=== PATIENT | female | born 1945 | race Caucasian/White ===

== ENCOUNTER → 2019-03-02 09:24 | Outpatient (BNVA) | payer MEDICARE, OTHER, SELFPAY | PROVIDERS: PCP Nurse Practitioner; Visit Provider Nurse Practitioner | DX: E78.5 Hyperlipidemia, unspecified (principal); R53.83 Other fatigue | CPT/HCPCS: 80053; 80061; 84439; 84443; 84481 ==

== ENCOUNTER → 2019-12-02 11:00 | Outpatient (BNVA) | payer MEDICARE, OTHER, SELFPAY | PROVIDERS: Family Provider Nurse Practitioner Family; PCP Nurse Practitioner; Visit Provider Nurse Practitioner Family | DX: Z12.31 Encounter for screening mammogram for malignant neoplasm of breast (principal); E03.9 Hypothyroidism, unspecified | CPT/HCPCS: 84443 ==

== ENCOUNTER 2019-12-23 12:38 | Outpatient (CLI) | payer MEDICARE, OTHER, SELFPAY ==
--- NOTE | 2019-12-23 12:52 | XR_ITS ---
WS: [id number] Exam: XR cervical spine 3V* [id number] Date/Time of Exam: 12/23/2019 12:52 PM Reason For Exam: Neck Pain No acute fracture or dislocation. There is straightening of the C-spine. There is spondylosis and deg enerative disc change from C5 to C7. Facet DJD at all levels. The odontoid is intact. Paraspinal soft tissues are unremarkable. XR/XR cervical spine 3V* [id number] IMPRESSION: 1. Degenerative changes from C5 to C7 as above. 2. No acute fracture or malalignment. Straightening.
--- NOTE | 2019-12-23 12:52 | XR_ITS ---
WS: [id number] Exam: XR lumbar spine 2-3V* [id number] Date/Time of Exam: 12/23/2019 12:52 PM Reason For Exam: Low back Pain No previous. No fracture or dislocation. Disc spaces are preserved. Dextroscoliosis noted. Partial sacralization o f L5 with a left-sided batwing transverse process. Posterior elements are intact. Minimal spondylosis . XR/XR lumbar spine 2-3V* [id number] IMPRESSION: 1. No fracture or malalignment. 2. Mild degenerative change and dextroscoliosis
== END 2019-12-23 12:39 | disposition home or self-care (01) ==
LOC: RAD 12:49
PROVIDERS: PCP Nurse Practitioner Family; Visit Provider Nurse Practitioner Family
DX: M54.5 Low back pain (principal); M54.2 Cervicalgia
CPT/HCPCS: 72040; 72100

== ENCOUNTER 2020-01-13 09:24 | Outpatient (CLI) | payer MEDICARE, OTHER, SELFPAY ==
--- NOTE | 2020-01-13 09:30 | MM_ITS ---
WS: [id number] Exam: [place] [id number] Date/Time of Exam: 01/13/2020 9:35 AM Reason For Exam: breast cancer VIEWS: MLO and CC views both breasts. Comparison made with prior exam of 05/23/2016. Findings: There was no sign of mass, architectural distortion or suspicious calcification in either breast. He terogeneously [place] MM/[place] [id number] Impression: BI-RADS: 2-Benign FOLLOW-UP: 1 Year Follow-up This mammogram was also analyzed by the Computer Aided Detection System R2 Imag e Impregnator Electrolytic Capacitors.
== END 2020-01-13 09:25 | disposition home or self-care (01) ==
LOC: RADSHAW 09:27
PROVIDERS: PCP Nurse Practitioner Family; Visit Provider Nurse Practitioner Family
DX: Z12.31 Encounter for screening mammogram for malignant neoplasm of breast (principal)
CPT/HCPCS: 77067

== ENCOUNTER 2021-05-24 14:55 | Outpatient (CLI) | payer MEDICARE, OTHER, SELFPAY ==
--- NOTE | 2021-05-24 15:06 | MM_ITS ---
WS: [id number] BILATERAL 3D TOMOSYNTHESIS DIGITAL SCREENING MAMMOGRAPHY WITH CAD CLINICAL INFORMATION: SCREENING HISTORY: Screening mammogram. No current complaints. COMPARISON: January 13, 2020 TECHNIQUE: Bilateral CC and MLO views. FINDINGS: The breasts are composed of heterogeneous fibroglandular density tissue, which can limit the detectio n of small underlying mass lesions. Biopsy marker LEFT breast. A few incidental punctate calcificatio ns. Vascular calcification. No suspicious mass, asymmetry, calcifications, or architectural distortio n. No evidence of malignancy. MM/[place] [id number] IMPRESSION: BI-RADS: 2-Benign FOLLOW UP: 1 Year Follow-up Recommend return to annual screening mammography.
== END 2021-05-24 14:56 | disposition home or self-care (01) ==
LOC: RADSHAW 15:01
PROVIDERS: PCP Nurse Practitioner Family; Visit Provider Nurse Practitioner Family
DX: Z12.31 Encounter for screening mammogram for malignant neoplasm of breast (principal)
CPT/HCPCS: 77063; 77067

== ENCOUNTER → 2021-05-29 09:58 | Outpatient (BNVA) | payer MEDICARE, OTHER, SELFPAY | PROVIDERS: PCP Nurse Practitioner Family; Visit Provider Nurse Practitioner | DX: E78.2 Mixed hyperlipidemia (principal); M19.90 Unspecified osteoarthritis, unspecified site | CPT/HCPCS: 80048; 80061; 84443 ==

== ENCOUNTER → 2022-05-23 11:34 | Outpatient (BNVA) | payer MEDICARE, OTHER, SELFPAY | PROVIDERS: PCP Nurse Practitioner; Visit Provider Nurse Practitioner | DX: E78.5 Hyperlipidemia, unspecified (principal); M25.50 Pain in unspecified joint | CPT/HCPCS: 80053; 80061; 84443; 85025 ==

== ENCOUNTER 2022-05-30 09:54 | Outpatient (CLI) | payer MEDICARE, OTHER, SELFPAY ==
--- NOTE | 2022-05-30 10:25 | MM_ITS ---
WS: [id number] BILATERAL SCREENING DIGITAL TOMOSYNTHESIS MAMMOGRAM WITH CAD HISTORY: SCREENING COMPARISON: 05/24/2021, 01/13/2020 Bilateral CC and MLO views with tomosynthesis and synthetic mammography submitted. Computer aided det ection analyzed. Breast composition: The breasts are heterogeneously dense, which may obscure small masses. No suspici ous masses, microcalcifications or architectural distortion. Biopsy clip in the posterior LEFT breast . MM/[place] [id number] IMPRESSION: BI-RADS: 2-Benign FOLLOW UP: 1 Year Follow-up
== END 2022-05-30 09:55 | disposition home or self-care (01) ==
LOC: RAD 10:00
PROVIDERS: PCP Nurse Practitioner; Visit Provider Family Medicine
DX: Z12.31 Encounter for screening mammogram for malignant neoplasm of breast (principal)
CPT/HCPCS: 77063; 77067

== ENCOUNTER 2023-06-11 14:52 | Outpatient (CLI) | payer MEDICARE, OTHER, SELFPAY ==
--- NOTE | 2023-06-11 14:55 | MM_ITS ---
WS: [id number] BILATERAL 3D TOMOSYNTHESIS DIGITAL SCREENING MAMMOGRAPHY WITH CAD CLINICAL INFORMATION: SCREENING HISTORY: Screening mammogram. No current complaints. COMPARISON: 05/30/2022 TECHNIQUE: Bilateral CC and MLO views. FINDINGS: The breasts are composed of heterogeneous fibroglandular density tissue, which can limit the detectio n of small underlying mass lesions. No suspicious mass, asymmetry, calcifications, or architectural d istortion. No evidence of malignancy. Biopsy clip LEFT breast. Incidental punctate and lucent centere d calcifications. IMPRESSION: MM/[place] [id number] BI-RADS: 2-Benign FOLLOW UP: 1 Year Follow-up Recommend return to annual screening mammography.
== END 2023-06-11 14:53 | disposition home or self-care (01) ==
LOC: RAD 14:52
PROVIDERS: PCP Nurse Practitioner; Visit Provider Nurse Practitioner
DX: Z12.31 Encounter for screening mammogram for malignant neoplasm of breast (principal)
CPT/HCPCS: 77063; 77067

== ENCOUNTER → 2023-06-23 10:47 | Outpatient (BNVA) | payer MEDICARE, OTHER, SELFPAY | PROVIDERS: PCP Nurse Practitioner Family; Visit Provider Nurse Practitioner Family | DX: Z13.6 Encounter for screening for cardiovascular disorders (principal); E78.5 Hyperlipidemia, unspecified; Z79.899 Other long term (current) drug therapy; E78.2 Mixed hyperlipidemia; E55.9 Vitamin D deficiency, unspecified | CPT/HCPCS: 80053; 80061; 81003; 82306; 83036; 84443; 85025 ==

== ENCOUNTER → 2023-08-19 12:47 | Outpatient (BNVA) | payer MEDICARE, OTHER, SELFPAY | PROVIDERS: PCP Nurse Practitioner Family; Visit Provider Student in an Organized Health Care Education/Training Program | DX: M17.0 Bilateral primary osteoarthritis of knee (principal) | CPT/HCPCS: 73523; 99204 ==

== ENCOUNTER 2023-09-12 13:30 | Outpatient (CLI) | payer MEDICARE, OTHER, SELFPAY ==
--- NOTE | 2023-09-12 13:30 | CT_ITS ---
WS: [id number] CT RIGHT HIP NONCONTRAST [facility] TECHNIQUE: Noncontrast CT of the RIGHT HIP to include the RIGHT hip and knee CLINICAL INFORMATION: M16.11 - Unilateral primary osteoarthritis, right hip COMPARISON: None. DLP: [address] scans at [facility] use at least one of these dose optimization techniques: automated e xposure control; mA and/or kV adjustment per patient size (includes targeted exams where dose is matc hed to clinical indication); or iterative reconstruction. FINDINGS: Advanced degenerative arthritis RIGHT HIP with bone on bone articulation and subchrondral cystic smiley nge. Associated sclerosis Moderate arthritis LEFT HIP L5 is partially sacralized. Sigmoid diverticulosis. CT/CT hip RT [id number] IMPRESSION: Images obtained for preoperative purposes.
== END 2023-09-12 13:31 | disposition home or self-care (01) ==
PROVIDERS: PCP Nurse Practitioner Family; Visit Provider Student in an Organized Health Care Education/Training Program
DX: M16.11 Unilateral primary osteoarthritis, right hip (principal); K57.30 Diverticulosis of large intestine without perforation or abscess without bleeding; M13.852 Other specified arthritis, left hip; M43.27 Fusion of spine, lumbosacral region
CPT/HCPCS: 73700

== ENCOUNTER → 2023-10-06 11:24 | Outpatient (BNVA) | payer MEDICARE, OTHER, SELFPAY | PROVIDERS: PCP Nurse Practitioner Family; Visit Provider Family Medicine | DX: Z01.818 Encounter for other preprocedural examination (principal) | CPT/HCPCS: 80053; 81003; 85025; 93005 ==

== ENCOUNTER 2023-10-20 11:15 | Observation (INO) | payer MEDICARE, OTHER, SELFPAY ==
[2023-10-20] VITALS (21 sets, daily range): BP systolic 105–180; BP diastolic 50–93; PULSE 60–77; RESP 14–21; TEMP 36.2–36.6; O2SAT 93–99; BMI 23.9
[2023-10-20] MEDS: lactated ringers 500 ML IV (06:22)
[2023-10-20] MEDS: ketorolac 30 mg/mL INJ IVP (06:23)
[2023-10-20] MEDS: acetaminophen 1,000 MG/100 ML PIGGYBACK 400 MG IV ×3 (06:24→22:26)
[2023-10-20] MEDS: scopolamine 1.5 Patch 1 PATCH TRANSDERMA (06:25)
[2023-10-20] MEDS: sodium chloride 0.9% 1,000 ML 30 ML IV (06:25)
--- NOTE | 2023-10-20 06:38 | ANES.PREANE2 ---
Pre-Anesthetic Assessment Height/Weight: Height 5 ft 3 in Weight 135 lb Temp Pulse Resp BP Pulse Ox O2 Del Method 97.5 F L 61 16 171/93 98 Room Air 10/20/23 06:02 10/20/23 06:02 10/20/23 06:02 10/20/23 06:02 10/20/23 06:02 10/20/23 06:02 Operation Date: 10/20/23 07:00 Proposed Procedures p Franco Robot Anterior Hip Arthroplasty(Right) - Nino Rosales DO Last intake: Intake Last Liquid Date 10/19/23 Last Liquid Time 19:00 Last Solid Date 10/19/23 Last Solid Time 19:00 Social No alcohol and No tobacco Exam alert, oriented x 3, clear to auscultation bilaterally and regular rate & rhythm Airway Submandibular: within normal limits Cervical ROM: within normal limits Mallampati: Class II Dentition: full Anesthetic Plan ASA status: 2 Anesthesia: Anesthesia Evaluation, MAC and Regional (specify below) Other: No prior issues with anesthesia NPO since midnight Labs 10/05 reviewed and acceptable for surgery EKG sinus rhythm with left axis deviation Patient denies any cardiac or pulmonary issues Hypothyroidism, treated with iodine METs greater than 4 Patient does note that she has an extra vertebra in her lower back, unsure of the level Plan for spinal anesthetic with adductor canal block Medications/Allergies Home Medications Medication Instructions Recorded Confirmed Last Taken Type pseudoephedrine HCl 30 mg tablet 30 mg PO BID PRN nasal congestion 05/30/20 10/20/23 Unknown Rx (Sudafed) 30 days #30 tabs ascorbate calcium (vitamin C) 500 500 mg PO DAILY 05/29/21 10/20/23 1 Month Ago History mg tablet ~09/16/23 cholecalciferol (vitamin D3) 125 125 mcg PO DAILY 05/29/21 10/20/23 1 Month Ago History mcg (5,000 unit) capsule ~09/16/23 coenzyme Q10 10 mg capsule (Co 10 mg PO TID 05/29/21 10/20/23 1 Month Ago History Q-10) ~09/16/23 diphenhydramine HCl 25 mg capsule 25 mg PO .daily at bedtime PRN 05/29/21 10/20/23 10/18/23 History (Benadryl) allergies lecithin 518 mg capsule 518 mg PO DAILY 05/29/21 10/20/23 1 Month Ago History ~09/16/23 omega-3 fatty acids 180 mg-fish 1 cap PO DAILY 05/29/21 10/20/23 1 Month Ago History oil 400 mg capsule ~09/16/23 psyllium seed (sugar) oral powder 1 tbsp PO DAILY 05/29/21 10/20/23 1 Month Ago History (Metamucil (sugar) oral powder) ~09/16/23 turmeric 100 mg-armani 150 2 cap PO DAILY 05/29/21 10/20/23 09/20/23 History mg-olive 50 mg-oreg 150 mg-capryl capsule vit A 300 mcg-C 200 mg-E 27 1 tab PO DAILY 05/29/21 10/20/23 1 Month Ago History mg-lutein 2 mg and minerals tablet ~09/16/23 (Vision Formula (with lutein)) zinc sulfate 50 mg zinc (220 mg) 50 mg PO DAILY 05/29/21 10/20/23 1 Month Ago History capsule ~09/16/23 montelukast 10 mg tablet 10 mg PO DAILY #90 tabs 05/23/22 10/20/23 1 Month Ago Rx ~09/16/23 simvastatin 40 mg tablet 40 mg PO DAILY 90 days #90 tabs 06/23/23 10/20/23 10/18/23 Rx iodine 150 mcg tablet 600 mcg PO DAILY 10/06/23 10/20/23 10/18/23 History meloxicam 15 mg tablet 15 mg PO DAILY 10/06/23 10/20/23 09/20/23 History Allergies Allergy/AdvReac Type Severity Reaction Status Date / Time No Known Allergies Allergy Verified 10/20/23 05:52 Current Medications Generic Name Dose Route Start Last Admin Trade Name Freq PRN Reason Stop Dose Admin Lactated Ringer's 500 mls @ 500 mls/hr 10/20/23 05:49 10/20/23 06:22 Lactated Ringers IV 10/20/23 06:48 500 mls/hr .Q1H ONE Administration Sodium Chloride 1,000 mls @ 30 mls/hr 10/20/23 06:00 10/20/23 06:25 Sodium Chloride 0.9% IV 10/21/23 05:59 30 mls/hr .Q24H MELVIN Administration PFSH Anesthesia Medical History Impacted cerumen of both ears Encounter for screening for cardiovascular disorders Medication management 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 Martino Diverticulosis - return in 10 years S/P appendectomy S/P hysterectomy Social History Smoking and tobacco/nicotine status: never used tobacco/nicotine Second hand smoke exposure: No Alcohol intake: never Substance/Drug Use: never Data Anesthesia Cardiac Studies: No Data to Display
[2023-10-20 06:49] LABS: Basophils % 0.7 %; Eosinophils # 0.2 10^3/uL (0.0-0.8); Eosinophils % 4.3 %; Hematocrit 41.7 % (36-47); Lymphocytes % 35.7 %; Mean Corpuscular HGB Conc 33.8 g/dL (30-55); Mean Corpuscular Hemoglobin 31.2 pg (27-33); Mean Corpuscular Volume 92.3 fl (85-98); Mean Platelet Volume 9.7 fL (7.4-10.4); Monocytes # 0.3 10^3/uL (0.2-0.9); Monocytes % 5.9 %; Neutrophils % 53.2 %; Nucleated Red Blood Cells % 0 %; Platelet Count 191 10^3/cmm (157-399); Red Blood Count 4.52 10^6/uL (3.85-5.65); Red Cell Distribution Width 12.8 % (12.1-15.1); White Blood Count 5.63 10^3/uL (3.29-11.43)
--- NOTE | 2023-10-20 06:51 | W.PM.OPSFHP ---
Same Day Surgery H&P Indication for Procedure/HPI DATE OF PROCEDURE: October 20, 2023 CHIEF COMPLAINT/INDICATIONFOR SURGICAL PROCEDURE: Right hip degenerative joint disease PREOP DIAGNOSIS: Right hip degenerative joint disease PLANNED PROCEDURE: Operation Date: 10/20/23 07:00 Proposed Procedures p Franco Robot Anterior Hip Arthroplasty(Right) - Nino Rosales DO Medications/Allergies* Home Medications Medication Instructions Recorded Confirmed Type ascorbate calcium (vitamin C) 500 500 mg PO DAILY 05/29/21 10/20/23 History mg tablet cholecalciferol (vitamin D3) 125 125 mcg PO DAILY 05/29/21 10/20/23 History mcg (5,000 unit) capsule coenzyme Q10 10 mg capsule (Co 10 mg PO TID 05/29/21 10/20/23 History Q-10) diphenhydramine HCl 25 mg capsule 25 mg PO .daily at bedtime PRN 05/29/21 10/20/23 History (Benadryl) allergies lecithin 518 mg capsule 518 mg PO DAILY 05/29/21 10/20/23 History omega-3 fatty acids 180 mg-fish 1 cap PO DAILY 05/29/21 10/20/23 History oil 400 mg capsule psyllium seed (sugar) oral powder 1 tbsp PO DAILY 05/29/21 10/20/23 History (Metamucil (sugar) oral powder) turmeric 100 mg-armani 150 2 cap PO DAILY 05/29/21 10/20/23 History mg-olive 50 mg-oreg 150 mg-capryl capsule vit A 300 mcg-C 200 mg-E 27 1 tab PO DAILY 05/29/21 10/20/23 History mg-lutein 2 mg and minerals tablet (Vision Formula (with lutein)) zinc sulfate 50 mg zinc (220 mg) 50 mg PO DAILY 05/29/21 10/20/23 History capsule iodine 150 mcg tablet 600 mcg PO DAILY 10/06/23 10/20/23 History meloxicam 15 mg tablet 15 mg PO DAILY 10/06/23 10/20/23 History Allergies/Adverse Reactions Allergy/AdvReac Type Severity Reaction Status Date / Time No Known Allergies Allergy Verified 10/20/23 05:52 Current Medications: Generic Name Dose Route Start Last Admin Trade Name Freq PRN Reason Stop Dose Admin Sodium Chloride 1,000 mls @ 30 mls/hr 10/20/23 06:00 10/20/23 06:25 Sodium Chloride 0.9% IV 10/21/23 05:59 30 mls/hr .Q24H MELVIN Administration Pertinent History/Comorbid Conditions* Medical History (Updated 06/23/23 @ 10:47 by NUBIA Olivera) Impacted cerumen of both ears Encounter for screening for cardiovascular disorders Medication management Arthritis of both knees Arthritis of both hips Environmental and seasonal allergies Allergic sinusitis Neck pain Low back pain Hypothyroid Breast cancer screening by mammogram Diverticulosis Genital herpes Hyperlipemia Surgical History (Updated 03/18/19 @ 03:02 by NUBIA Olivera) H/O colonoscopy 09/[address] Martino Diverticulosis - return in 10 years S/P appendectomy S/P hysterectomy Social History Smoking and tobacco/nicotine status: never used tobacco/nicotine Second hand smoke exposure: No Alcohol intake: never Substance/Drug Use: never Pertinent Exam Findings alert, oriented x 3, operative site marked and procedure specific exam findings Please refer to detailed orthopedic examination on 08/19/2023: Right Hip Examination: -No lumbar spine tenderness -No pain with hyperextension or flexion of lumbar spine -No SI joint tenderness, Bilaterally -TTP over groin -No TTP over lateral trochanteric bursa -Significant pain with hip flexion and IR, reproduced at the groin -IR 5 degrees and ER 10 degrees -Smooth hip ROM on contralateral side Recommendations Surgery/Procedure today Other Plans: Plan proceed to the OR today for right total hip arthroplasty with Franco robotic assisted. Anterior approach. Patient's clear the preoperative clearance process she understands the ins and outs procedure the risk benefits complication alternatives surgery and through shared decision make elects proceed with surgical intervention today. All questions have been answered at this time. Is been medically optimized and no change in her health since our last visit. Patient understands agrees to current plan. Questions answered. Coding Level of Care Code Acute Code for Chg Fwchristine
[2023-10-20 07:03] LABS: Anion Gap 15.8 (5-19); Blood Urea Nitrogen 12 mg/dL (8-23); Calcium 9.1 mg/dL (8.5-10.5); Carbon Dioxide 24 mmol/L (22-29); Chloride 106 mmol/L (98-107); Glucose 116 mg/dL (65-115); Osmolality Calculated 295 mOsm/kg (285-295); Potassium 3.8 mmol/L (3.5-5.1); Sodium 142 mmol/L (136-145)
[2023-10-20] MEDS: ceFAZolin 2,000 MG in sodium chloride 0.9% (plus) 50 ML 100 MG IV ×3 (07:13→22:48)
[2023-10-20] MEDS: tranexamic acid 1,000 mg/10mL SDV 1000 MG IV (07:52)
[2023-10-20] MEDS: lidocaine-epi 1% 20 mL INJ INJECTION (08:07)
[2023-10-20] MEDS: vancomycin 1,000 MG SDV 1000 MG XX (09:35)
[2023-10-20] MEDS: lidocaine-epi 1% 20 mL INJ 10 ML INJECTION (09:44)
[2023-10-20] MEDS: ROPivacaine 0.5% SDV 30 mL 50 MG INJECTION (09:44)
--- NOTE | 2023-10-20 10:13 | PM.OP ---
Operative Report Date of procedure: October 20, 2023 Surgeon: Nino Rosales DO Branch Manager Trainee: Michael Rosales PA-C: PA was necessary for assistance in this case with leg positioning retraction reduction, and protection of neurovascular structures as well as assistance in implantation wound closure and dressing application. Procedure: Preoperative diagnosis: Right hip degenerative joint disease post-op diagnosis: Same Procedure done: Right total hip arthroplasty?Franco robotic assisted?anterior?approach Implants: [place] Trident acetabular shell size 50 mm [place] acetabular screw 25 mm Wilfrid acetabular screw 25 mm Insignia high offset size 5? femur stem Trident 0 degree polyethylene 36 degree inner diameter 36 mm femoral head ceramic +0 mm Surgeon: Nino Rosales DO Anesthesia: Other (Spinal) Estimated blood loss: 300 mL IV fluids: 1500 mL Complications: None Findings: See operative report narrative Condition: stable Disposition: floor Brief History: Patient is a 77-year-old female presented to my outpatient office setting findings consistent with [id number] arthritis advanced degenerative joint disease of the right hip.? We talked about treatment options as far as nonoperative and operative intervention. Pt has failed conservative treatment.up to this point and Patient's right hip degenerative joint disease has been so severe its given her pain and decreased range of motion.? we talked about treatment options at this point time pt understands the risk benefits complication alternatives surgical nonsurgical treatment options.? Patient understands the risk of surgery and agrees to proceed.? Patient has underwent a preoperative evaluation. Pt cleared for surical intervention. Pt understood and was agreeable to proceed with a right total hip arthroplasty consent was reviewed and signed with patient.?? All questions answered.? Patient will be admitted postoperatively. Procedure: Patient was seen evaluated in the preoperative holding area.? Consent was reviewed and signed with patient.? Correct operative extremity was then marked. ? All questions were answered at this time.? Once cleared by anesthesia used to brought back to the operative suite he then underwent anesthesia per the anesthesia department of a spinal anesthetic. The patient was administered tranexamic acid and preop antibiotics, and placed in the supine position. All bony prominences were properly padded, securely fixed to the table, and administered?general?anesthetic. The patient was subsequently transferred from the hospital bed to the [place] table. Bilateral lower extremities were placed in the traction boots. The pelvis was well approximated against the perineal post.? Final timeout performed.? Patient received appropriate preoperative antibiotics. Both hips were then prepped and draped in a normal orthopedic fashion.? Started with a small incision 2 fingerbreadths above the ASIS on the left iliac wing to place? pelvic arrays.? Small incision was made directly down to bone.? 3 pelvic pins were placed with excellent fixation.? The robotic array was secured to the nonoperative iliac wing using sterile technique. The extremity was then definitively draped in standard, sterile fashion.? The array was found to be visible by the robot. ?A standard??anterior?supine approach was performed to the?operative hip joint. Local was injected around the incision site. The skin was incised down to the tensor fascia olga muscle and fascia. Fascia was split longitudinally in line with its fibers. The tensor fascia olga muscle was retracted laterally. The appropriate retractors were placed superiorly. Lateral circumflex vessels were identified and appropriately ligated. The hip capsule was then identified.? Appropriate retractors were placed superiorly .??That was split longitudinally up to the acetabular rim in line with the femoral neck. The femoral capsule was found to be significantly hypertrophic, thickened, and significantly fibrotic. The capsule was then elevated both superiorly and inferiorly down to the lesser trochanter as well as up towards the greater trochanter.? Tag stitches were applied with 0 Ethibond into the capsule.? Femoral check point was?then inserted and confirmed on the lateral trochanter proximal femur.? A distal marker?of a sterile EKG lead was placed into the distal femur for measurement of leg lengths.? Preoperative leg lengths were registered and confirmed at this point. Next the appropriate-sized neck cut was then performed after being measured with robotic assistance. Femoral head was removed atraumatically this was found to have significant degenerative changes and deformity with significant osteophyte formation.? Femoral head was found to be severely degenerated and flattening with, eburnated bone. Acetabulum was also inspected and was found to have peripheral osteophytes as well as no evidence of cartilage consistent with [id number]-[id number] arthritis.? Appropriate retractors were then placed in the?anterior?and posterior wall.? The remaining labrum was then excised from the periphery of the acetabular rim. Pulvinar was excised.? At this point registration for the Franco was performed on the acetabular side and confirmed. Once confirmed, any osteophytes able to be were removed. We planned 40 degrees of lateral opening and 20 degrees of anteversion. At this point, we reamed and medialized to the inner wall of the acetabulum with a size?50?reamer for line to line fit.?The acetabulum was found to have good bleeding bone throughout.?? Reamer removed excellent bleeding bone circumferentially with sufficient?anterior?and posterior wall. ?The definitive acetabular cup 50 mm was inserted and impacted under?Franco guidance with the appropriate amount of anteversion and lateral opening. It was then secured with 2x 6.5 mm cancellous screws in appropriate safe zone position.? I subsquently drilled measured and place appropriate length acetabular screws which measured 25 mm and 25 mm.? These had excellent fixation final x-rays were taken of the acetabular work and showed a seated and well fixed acetabular cup with appropriate position acetabular screws.? ?Next a 36-mm X3 neutral liner was impacted into the?acetabular shell and secured. Hip was then irrigated with copious amounts of irrigation. At this point, the remaining femoral releases were then performed allowing the adequate mobilization of the?right?femur.? Traction was confirmed to being off to the right lower extremity and the femur was then externally rotated, extended, and adducted giving adequate exposure of the proximal femur in the surgical wound. Box cut was then used to enter the intramedullary canal of the?femur. Canal finder was placed down the canal of the?operative femur. Appropriate-sized broaches from a size 0 up to a size 5 were impacted down the operative femoral canal with the appropriate amount of anteversion.? A multiple trials were attempted and it was found?that?+0mm neck was found to be most appropriate for a soft tissue tensioning offset, stability and the leg lengths?that was confirmed with Franco. ?Stability was then assessed and excellent stability with patient external rotation of greater?than 90 degrees and traction with no evidence of hip instability.? Appropriate tension noted of the soft tissues. At this point, the hip was relocated.?Franco guidance was again used to confirm appropriate leg lengths.? I utilized C arm to evaluate for leg lengths as well I did slightly at the lengthen comparative to the contralateral extremity but this was the appropriate size for patient's stability and excellent soft tissue tensioning as well as this was mapped with her preoperative planning given she had been significantly shortened given her arthritis.? Operative hip was then re-dislocated using a bone hook. All trials were then removed from the?operative femur. Adequate exposure was then once again obtained. The trials were removed. The definitive Wilfrid insignia femoral stem size 5 was impacted down the?femoral canal with the appropriate amount of anteversion. The appropriate sized head 36 mm ceramic +0 mm was impacted onto the trunnion, and the?operative?hip was then relocated with traction and internal rotation. Final measurements were obtained on Franco confirming leg lengths and offset.? Once again hip stability was assessed and found to have excellent stability and appropriate soft tissue tensioning.? Hip was irrigated with copious amounts of irrigation.? Vancomycin powder was placed within the wound bed for added infection prophylaxis.? The superior and inferior leaflets of the capsule were then closed with Ethibond suture.? Tag stitches were removed.? The superficial layer of the tensor fascia olga fascia was closed using 0 stratafix suture in a running fashion.? Subcutaneous tissues were closed with running 3-0 Stratafix, skin was closed with 4-0 monocryl.?Surgical Prineo glue and steri strips were?applied and covered with a nestor dressing to the operative side.?The incision on the non-operative side for the robotic array was irrigated and closed with layered fashion of 0 Vicryl, 2-0 Vicryl and running Monocryl suture and surgical glue and covered with Silverlon. ?The patient was subsequently awoken per Anesthesia and transferred to PACU in satisfactory condition. ?Leg lengths and rotational profile were found to be appropriate. ? DISPOSITION: The patient will be admitted to the hospital for initiation of DVT prophylaxis, physical therapy, pain control. The patient is to weight bear as tolerated.?Anterior?hip precautions, postoperative antibiotics,?postoperative TXA and Eliquis?for DVT prophylaxis.? Patient will receive appropriate discharge instructions as well as pain medication postoperatively and will follow up in my office in 2 weeks.? Patient with work with PT/OT.? Internal medicine will be consulted for medical management
--- NOTE | 2023-10-20 10:16 | XR_ITS ---
WS: [id number] Exam: XR hip RT 2-3V wo/w pel* [id number] Date/Time of Exam: 10/20/2023 10:36 AM Reason For Exam: post op DWIGHT RIGHT total hip arthroplasty is in place in satisfactory position. Postoperative changes in the adjac ent soft tissues. XR/XR hip RT 2-3V wo/w pel* [id number] IMPRESSION: 1. RIGHT total hip replacement in satisfactory position.
--- NOTE | 2023-10-20 10:21 | XR_ITS ---
WS: [id number] Exam: XR hip RT 2-3V wo/w pel* [id number] Date/Time of Exam: 10/20/2023 10:22 AM Reason For Exam: OR PICS Intraoperative anterior posterior images of the RIGHT hip are submitted. The final image depicts a to rosaura hip prosthesis in place. Postoperative changes in the adjacent soft tissues.
--- NOTE | 2023-10-20 10:25 | W.PM.BPON ---
Date of Procedure: [October 20, 2023] Surgeon: [Dr. Rosales DO] Rehabilitation Physician(s): [Michael Rosales PA-C] Procedure(s) performed: [Right total hip arthroplasty with Franco robotic assist] Findings of the procedure(s): [Right hip degenerative joint disease] Estimated blood loss: [300 ml] Specimen(s) removed: [Femoral head] Post-operative diagnosis: [Right hip degenerative joint disease.]
--- NOTE | 2023-10-20 10:27 | PM.PACU ---
PACU note Narrative: Patient is a 77-year-old female just underwent a right total hip arthroplasty. Pt transferred to PACU in stable condition. Dressing is dry. pt is awake and alert. Compartments are soft and compressible. Distal pulses are palpable toes are warm and well-perfused. Cap refill is normal and under 2 seconds. Unable to assess motor or sensation due to residual spinal block. pain is controlled. Exam: awake Disposition: admitted
[2023-10-20] MEDS: lactated ringers 1,000 ML 100 ML IV ×2 (11:51→20:37)
[2023-10-20] MEDS: oxyCODONE 5 mg IR Tab/Cap PO ×2 (13:30→20:39)
[2023-10-20] MEDS: tranexamic acid 1,000 MG/100 ML PREMIX 600 MG IV (13:33)
[2023-10-20] MEDS: chlorhexidine gluconate 0.12% Btl 473 mL 30 ML MUCOUS MEM ×3 (13:34→20:39)
--- NOTE | 2023-10-20 14:14 | ANE.PACU2 ---
Inpatient post-anesthesia follow up: Airway intact: Yes Vital signs: Temperature 97.4 F Pulse Rate 67 Respiratory Rate 16 Blood Pressure 129/78 Pulse Oximetry 96 Oxygen Delivery Me thod Room Air Oxygen Flow Rate Fraction of Inspir ed Oxygen Hydration adequate: Yes Nausea and vomiting: No Pain level: 1 Mental status: Baseline
[2023-10-20] MEDS: HYDROmorphone 1 mg/mL INJ 1 mL 0.5 MG IVP (14:48)
[2023-10-20] MEDS: calcium carb-vit d 600mg/400unit 1 Tablet 1 EACH PO (17:57)
[2023-10-20] MEDS: iron polysaccharide complex 150 mg Capsule PO (17:57)
[2023-10-20] MEDS: sennosides-docusate Tablet 2 TAB PO (17:57)
[2023-10-20] MEDS: mupirocin oint 22 gm 1 APPLIC NASAL (17:59)
[2023-10-20] MEDS: ketorolac 30 mg/mL INJ 15 MG IVP (18:39)
[2023-10-20] MEDS: diphenhydrAMINE 25 mg Capsule PO (22:26)
[2023-10-21] VITALS (7 sets, daily range): BP systolic 157–174; BP diastolic 69–80; PULSE 72–74; RESP 16–18; TEMP 36.6–36.9; O2SAT 94–95
[2023-10-21] MEDS: oxyCODONE 5 mg IR Tab/Cap PO ×3 (00:15→12:07)
[2023-10-21] MEDS: ketorolac 30 mg/mL INJ 15 MG IVP (02:59)
[2023-10-21] MEDS: acetaminophen 1,000 MG/100 ML PIGGYBACK 400 MG IV (05:06)
[2023-10-21 05:29] LABS: Basophils % 0.3 %; Eosinophils % 0.7 %; Hematocrit 32.6 % (36-47); Lymphocytes # 1.1 10^3/uL (0.8-4.8); Lymphocytes % 18.5 %; Mean Corpuscular Hemoglobin 31.7 pg (27-33); Mean Corpuscular Volume 93.1 fl (85-98); Mean Platelet Volume 9.8 fL (7.4-10.4); Monocytes # 0.4 10^3/uL (0.2-0.9); Monocytes % 6.2 %; Neutrophils # 4.53 10^3/uL (1.8-7.7); Nucleated Red Blood Cells % 0 %; Platelet Count 132 10^3/cmm (157-399); Red Cell Distribution Width 12.9 % (12.1-15.1); White Blood Count 6.12 10^3/uL (3.29-11.43)
[2023-10-21] MEDS: ceFAZolin 2,000 MG in sodium chloride 0.9% (plus) 50 ML 100 MG IV (05:31)
[2023-10-21 05:47] LABS: Anion Gap 13.7 (5-19); Blood Urea Nitrogen 6 mg/dL (8-23); Calcium 8.8 mg/dL (8.5-10.5); Carbon Dioxide 24 mmol/L (22-29); Chloride 103 mmol/L (98-107); Creatinine Clr Calc Pharmacy 56.1754; Glucose 130 mg/dL (65-115); Osmolality Calculated 283 mOsm/kg (285-295); Potassium 3.7 mmol/L (3.5-5.1); Sodium 137 mmol/L (136-145)
[2023-10-21] MEDS: iron polysaccharide complex 150 mg Capsule PO (09:36)
[2023-10-21] MEDS: multivitamin therapeutic Tablet 1 TAB PO (09:36)
[2023-10-21] MEDS: calcium carb-vit d 600mg/400unit 1 Tablet 1 EACH PO (09:36)
[2023-10-21] MEDS: sennosides-docusate Tablet 2 TAB PO (09:36)
[2023-10-21] MEDS: apixaban 5 mg Tablet 2.5 MG PO (09:36)
[2023-10-21] MEDS: chlorhexidine gluconate 0.12% Btl 473 mL 30 ML MUCOUS MEM ×2 (09:38→12:08)
[2023-10-21] MEDS: mupirocin oint 22 gm 1 APPLIC NASAL (09:38)
[2023-10-21] MEDS: lactated ringers 1,000 ML 100 ML IV (09:41)
--- NOTE | 2023-10-21 13:21 | P.DS_ITS ---
Discharge Providers Date of Admission: 10/20/23 11:15 Date of Discharge: October 21, 2023 Attending Provider at Admission: Nino Rosales DO Attending Provider at Discharge: Nino Rosales DO Primary Care Provider: NUBIA Petty Reason for Visit Reason for Visit: M16.11 Brief History: Status post right DWIGHT Hospital Course Hospital Course Patient was brought to the hospital through the preoperative holding area with plan for right total hip arthroplasty for right hip dengerative joint disease. Once cleared by anesthesia for surgery subsequently was taken back to the operative suite underwent anesthesia per the anesthesia department and then underwent right total hip arthroplasty with Franco robotic assistance anterior approach without any complications. Patient was then subsequently taken back to PACU in stable condition recovering well. Once recovered, patient was then subsequently admitted to the floor postoperatively. Internal medicine was consulted for medical management assistance. Patient weightbearing as tolerated to the right lower extremity, anterior hip precautions. PT/OT. Pain control. DVT prophylaxis. Postoperative antibiotics and TXA. dressing was change as needed. Internal medicine was on board and appreciate their medical management and assistance. Pt was determined on postoperative day 1 the patient was stable for discharge from orthopedic as well as internal medicine standpoint. Patient's labs were monitored daily. Patient will receive appropriate pain medication as well as DVT prophylaxis postoperatively. Appropriate discharge instructions as well. Patient was then discharged in stable condition. Patient will discharge home. Pt will follow-up with Orthopedics in the office in 2 weeks. Patient understands and agrees with current plan. All questions answered. Understands there is any issues or concerns and contact the office. Physical Exam Narrative: Right lower extremity: hip dressings are in place clean dry and intact stuart dressing on in place with good seal. Patient is able to tolerate gentle hip range of motion with no pain or discomfort, negative logroll examination., Patient is able to perform straight leg raise. Normal postoperative swelling about the right hip, calves are soft and nontender, compartments are soft and compressible patient able to wiggle toes plantarflex and dorsiflex ankle sensations intact light touch distally. Distal pulses are palpable. Left hip FRANCO iliac crest dressing clean dry and intact, normal postop ecchymosis noted Urinary Catheter Management: Hernandez: Cath Placed During This Visit: yes, but has since been removed by the nurse Reason for Continuing Indwelling Catheter: Does Not Meet Criteria Urinary Catheter Date of Insertion: 10/20/23 Urinary Catheter Time of Insertion: 07:35 Date Urinary Catheter Removed: 10/21/23 Time Urinary Catheter Discontinued: 05:22 Discharge Data Studies Completed and Pending Completed Studies During Hospitalization Category Date Time Status XR hip RT 2-3V wo/w pel* 24210 Routine Exams 10/20/23 10:16 Completed XR hip RT 2-3V wo/w pel* [id number] Routine Exams 10/20/23 10:21 Completed Pending at discharge Category Date Time Status Basic Metabolic Panel AM LABS Lab 10/22/23 04:00 Ordered Basic Metabolic Panel AM LABS Lab 10/23/23 04:00 Ordered Complete Blood Count w/Auto AM LABS Lab 10/22/23 04:00 Ordered Complete Blood Count w/Auto AM LABS Lab 10/23/23 04:00 Ordered Laboratory Results WBC 6.12 10^3/uL (3.29-11.43) 10/21/23 05:05 RBC 3.50 10^6/uL (3.85-5.65) L 10/21/23 05:05 Hgb 11.10 g/dL (11.27-16.99) L 10/21/23 05:05 Hct 32.6 % (36-47) L 10/21/23 05:05 MCV 93.1 fl (85-98) 10/21/23 05:05 MCH 31.7 pg (27-33) 10/21/23 05:05 MCHC 34.0 g/dL (30-55) 10/21/23 05:05 RDW 12.9 % (12.1-15.1) 10/21/23 05:05 Plt Count 132 10^3/cmm (157-399) L D 10/21/23 05:05 MPV 9.8 fL (7.4-10.4) 10/21/23 05:05 Neut % (Auto) 74.0 % 10/21/23 05:05 Lymph % (Auto) 18.5 % 10/21/23 05:05 [place] % (Auto) 6.2 % 10/21/23 05:05 Eos % (Auto) 0.7 % 10/21/23 05:05 Baso % (Auto) 0.3 % 10/21/23 05:05 Neut # (Auto) 4.53 10^3/uL (1.8-7.7) 10/21/23 05:05 Lymph # (Auto) 1.1 10^3/uL (0.8-4.8) 10/21/23 05:05 [place] # (Auto) 0.4 10^3/uL (0.2-0.9) 10/21/23 05:05 Eos # (Auto) 0.0 10^3/uL (0.0-0.8) 10/21/23 05:05 Baso # (Auto) 0.0 10^3/uL (0.0-0.1) 10/21/23 05:05 Nucleated RBC % (auto) 0 % 10/21/23 05:05 Nucleated RBCs # 0.0 /100WBC 10/21/23 05:05 Sodium 137 mmol/L (136-145) 10/21/23 05:05 Potassium 3.7 mmol/L (3.5-5.1) 10/21/23 05:05 Chloride 103 mmol/L (98-107) 10/21/23 05:05 Carbon Dioxide 24 mmol/L (22-29) 10/21/23 05:05 Anion Gap 13.7 (5-19) 10/21/23 05:05 BUN 6 mg/dL (8-23) L 10/21/23 05:05 Creatinine 0.7 mg/dL (0.5-0.9) 10/21/23 05:05 GFR Calculation Not Reportable 10/21/23 05:05 Glucose 130 mg/dL (65-115) H 10/21/23 05:05 Calculated Osmolality 283 mOsm/kg (285-295) L 10/21/23 05:05 Calcium 8.8 mg/dL (8.5-10.5) 10/21/23 05:05 Blood Type A Negative 10/20/23 06:30 Rho(D) Type Rh negative 10/20/23 06:30 Antibody Screen Negative 10/20/23 06:30 Vitals Last Vital Signs Temp 97.8 F 10/21/23 12:08 Pulse 74 10/21/23 12:08 Resp 17 10/21/23 12:08 BP 174/70 10/21/23 12:08 Pulse Ox 94 10/21/23 12:08 O2 Del Method Room Air 10/21/23 12:08 Discharge Plan Discharge Patient Disposition: Home Health Service Condition: Stable Prescriptions: New Eliquis 2.5 mg tablet 2.5 mg PO BID 35 Days Qty: 70 0RF Continued pseudoephedrine HCl [Sudafed] 30 mg tablet 30 mg PO BID PRN (Reason: nasal congestion) 30 Days Qty: 30 0RF zinc sulfate 50 mg zinc (220 mg) capsule 50 mg PO DAILY cholecalciferol (vitamin D3) 125 mcg (5,000 unit) capsule 125 mcg PO DAILY omega-3 fatty acids-fish oil 180-400 mg capsule 1 cap PO DAILY Vision Formula (with lutein) 1,000 unit-200 mg-60 unit-2 mg tablet 1 tab PO DAILY Rx Instructions: administer after a meal zpalqrej-vngb-uqodp-oreg-capry 100 mg-150 mg- 50 mg-150 mg capsule 2 cap PO DAILY lecithin 518 mg capsule 518 mg PO DAILY ascorbate calcium (vitamin C) 500 mg tablet 500 mg PO DAILY Metamucil (sugar) Powder 1 tbsp PO DAILY diphenhydramine HCl [Benadryl] 25 mg capsule 25 mg PO .daily at bedtime PRN (Reason: allergies) coenzyme Q10 [Co Q-10] 10 mg capsule 10 mg PO TID iodine 150 mcg tablet 600 mcg PO DAILY montelukast 10 mg tablet 10 mg PO DAILY Qty: 90 1RF simvastatin 40 mg tablet 40 mg PO DAILY 90 Days Qty: 90 2RF Discontinued meloxicam 15 mg tablet 15 mg PO DAILY Discharge Orders: Discharge Order (Routine); Ordered 10/21/23 Ordered By: Nino Rosales Referrals: [facility] [Outside] SARA Douglass, FRUIT TRIMMER [Primary Care Provider] - (We have notified your physician's clinic of the need for a follow-up appointment to be scheduled. If you have not heard from them within the next 2 business days, please call them directly. Patient should be seen by the end of the week) Nino Rosales DO [Physician] - 11/04/23 9:00 am Discharge Diet: Regular Discharge Activity: Limit activity as instructed Patient Instructions: Oxycodone, Slow Release (By mouth), Apixaban (By mouth), Acute Wound Care (DC), Anterior Hip Replacement (DC), Opioid Safety, Post Anesthesia Care Activity Restrictions/Additional Instructions: Orthopedic discharge instructions: Right hip--Stuart Dressing on --Keep dressing on and dry. After 3 days you can remove some of the dressing and shower. disconnect battery pack when showering. Stuart dressing will stay on until follow up appt in 2 weeks. Dana morgan to remove stuart dressing after 1 week and clean incision with warm soapy water pat dry and redress with a Silverlon dressing. The battery pack for the dressing will at 5-7 days. Battery pack can be removed and discarded once batteries . Left hip--Keep incisions clean dry and intact, leave Silverlon bandage dressings on in place for 7 days after that may rinse incisions with warm soapy water pat dry and redress with a dry dressing Weight-bear as tolerated to operative lower extremity Anterior hip precautions as instructed by physical therapy Ice as needed for pain and swelling Take pain medication as prescribed Take antinausea medication as needed Supplement with Citracal vitamin D for bone health and healing Take Colace as needed for constipation Take blood thinner as prescribed (Eliquis) Supplement with Tylenol for pain Hold meloxicam Follow-up in the orthopedic office in 2 weeks Contact the office for any questions or concerns Follow-up with primary care provider by the end of the week Discharge Attestations Time Spent in Discharge Care*: less than 30 min Quality Metrics Clinical Quality Measures [ No reported AMI, CVA or VTE this stay] Coding Level of Care Code Acute Code for Chg Lady
--- NOTE | 2023-10-21 15:39 | PC.NURSE ---
Discussed discharge follow up appointments, new medications, continued medications, held medications, signs and symptoms of infection as well as PICCO drawn and other restrictive activities. Sent [place] dressing with patient per Dr. Rosales. Patient and spouse verbalized understanding.
== END 2023-10-21 15:00 | disposition home health service (06) ==
LOC: MEDSURG 11:15
PROVIDERS: Physician Assistant; Admitting Provider Student in an Organized Health Care Education/Training Program; PCP Nurse Practitioner Family; Visit Provider Student in an Organized Health Care Education/Training Program
PROC: 8E0Y0CZ Robotic Assisted Procedure of Lower Extremity, Open Approach (ICD-10-PCS; CPT 27130; principal; 2023-10-20 07:00)
DX: M16.11 Unilateral primary osteoarthritis, right hip (principal); E03.9 Hypothyroidism, unspecified
CPT/HCPCS: 20985; 27130; 36415; 51702; 73502; 76000; 80048; 85025; 86850; 86900; 97110; 97116; 97161; 97165; 97530; C1713; C1776; G0378; J0131; J0690; J1170; J1885; J2704; J2795; J3370; J3490; J7030; J7120

== ENCOUNTER → 2023-11-04 08:55 | Outpatient (BNVA) | payer MEDICARE, OTHER, SELFPAY | PROVIDERS: PCP Nurse Practitioner Family; Visit Provider Physician Assistant | DX: Z96.641 Presence of right artificial hip joint (principal) | CPT/HCPCS: 73502; 99024 ==

== ENCOUNTER → 2023-12-16 10:06 | Outpatient (BNVA) | payer MEDICARE, OTHER, SELFPAY | PROVIDERS: PCP Nurse Practitioner Family; Visit Provider Physician Assistant | DX: Z96.641 Presence of right artificial hip joint (principal); R03.0 Elevated blood-pressure reading, without diagnosis of hypertension | CPT/HCPCS: 73502; 99024 ==

== ENCOUNTER → 2023-12-18 11:41 | Outpatient (BNVA) | payer MEDICARE, OTHER, SELFPAY | PROVIDERS: PCP Nurse Practitioner Family; Referring Provider Nurse Practitioner Family; Visit Provider Surgery | DX: R03.0 Elevated blood-pressure reading, without diagnosis of hypertension (principal); K92.1 Melena; Z90.49 Acquired absence of other specified parts of digestive tract | CPT/HCPCS: 99204 ==

== ENCOUNTER 2024-01-14 09:29 | Day surgery (SDC) | payer MEDICARE, OTHER, SELFPAY ==
[2024-01-14 09:51] VITALS: BP 140/97; PULSE 87; RESP 18; TEMP 36.2; O2SAT 96; BMI 23.9
[2024-01-14] MEDS: sodium chloride 0.9% 1,000 ML 30 ML IV (09:55)
--- NOTE | 2024-01-14 10:07 | ANES.PREANE2 ---
Pre-Anesthetic Assessment Height/Weight: Height 1.6 m Weight 61.235 kg Temp Pulse Resp BP Pulse Ox O2 Del Method 97.2 F L 87 18 140/97 96 Room Air 01/14/24 09:51 01/14/24 09:51 01/14/24 09:51 01/14/24 09:51 01/14/24 09:51 01/14/24 09:51 Operation Date: 01/14/24 10:30 Proposed Procedures p EGD 42667, 14869, G0121(Not Applicable) - DO zulema Tom Colonoscopy(Not Applicable) - Lico Walter DO Familial anesthetic complications: none Was Beta Charlene taken within 24 hours: N/A Was Clonidine taken within 24 hours: N/A Last intake: Intake Last Liquid Date 01/13/24 Last Liquid Time 20:00 Last Solid Date 01/12/24 Last Solid Time 19:00 Social No alcohol and No tobacco Exam alert and oriented x 3 Airway Submandibular: within normal limits Cervical ROM: within normal limits Mallampati: Class II Dentition: full History/ROS No significant complaints Pulmonary None reported CV/HEM None reported None reported Hepatic None reported GI None reported Metabolic Hyperlipidemia and Thyroid Disease [facility] None reported Neuropsych None reported Anesthetic Plan ASA status: 2 Anesthesia: Anesthesia Evaluation and MAC Medications/Allergies Home Medications Medication Instructions Recorded Confirmed Last Taken Type ascorbate calcium (vitamin C) 500 500 mg PO DAILY 05/29/21 01/12/24 01/12/24 History mg tablet diphenhydramine HCl 25 mg capsule 25 mg PO .daily at bedtime PRN 05/29/21 01/12/24 01/13/24 History (Benadryl) allergies lecithin 518 mg capsule 518 mg PO DAILY 05/29/21 01/12/24 01/13/24 History turmeric 100 mg-armani 150 2 cap PO DAILY 05/29/21 01/12/24 01/13/24 History mg-olive 50 mg-oreg 150 mg-capryl capsule vit A 300 mcg-C 200 mg-E 27 1 tab PO DAILY 05/29/21 01/12/24 01/13/24 History mg-lutein 2 mg and minerals tablet (Vision Formula (with lutein)) zinc sulfate 50 mg zinc (220 mg) 50 mg PO DAILY 05/29/21 01/12/24 01/12/24 History capsule montelukast 10 mg tablet 10 mg PO DAILY #90 tabs 05/23/22 01/12/24 01/12/24 Rx simvastatin 40 mg tablet 40 mg PO DAILY 90 days #90 tabs 06/23/23 01/12/24 01/13/24 Rx iodine 150 mcg tablet 600 mcg PO DAILY 10/06/23 01/12/24 01/13/24 History acetaminophen 650 mg 650 mg PO Q12H PRN arthritis 01/14/24 01/14/24 01/13/24 History tablet,extended release Allergies Allergy/AdvReac Type Severity Reaction Status Date / Time No Known Allergies Allergy Verified 12/18/23 11:51 Current Medications Generic Name Dose Route Start Last Admin Trade Name Freq PRN Reason Stop Dose Admin Sodium Chloride 1,000 mls @ 30 mls/hr 01/14/24 09:45 01/14/24 09:55 Sodium Chloride 0.9% IV 01/15/24 09:44 30 mls/hr .Q24H MELVIN Administration PFSH Anesthesia Medical History Hematochezia Melena Impacted cerumen of both ears Encounter for screening for cardiovascular disorders Medication management 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 Martino Diverticulosis - return in 10 years S/P appendectomy S/P hysterectomy Social History Smoking and tobacco/nicotine status: never used tobacco/nicotine Second hand smoke exposure: No Alcohol intake: never Substance/Drug Use: never Data Anesthesia Cardiac Studies: No Data to Display
--- NOTE | 2024-01-14 10:22 | W.PM.OPSUD ---
Surgery/Procedure H&P Update DATE OF PROCEDURE: January 14, 2024 DATE H&P PERFORMED: 12/18/23 H&P UPDATE INFORMATION: I have reviewed H&P completed within last 30 days, I have examined patient prior to procedure and No changes to prior documentation PLANNED PROCEDURE: Operation Date: 01/14/24 10:30 Proposed Procedures p EGD 50843, 13155, G0121(Not Applicable) - DO zulema Tom Colonoscopy(Not Applicable) - Lico Walter DO
[2024-01-14 10:45] VITALS: BP 133/77; PULSE 68; RESP 17; TEMP 36.1; O2SAT 94
[2024-01-14 11:00] VITALS: BP 134/85; PULSE 67; RESP 18; O2SAT 96
--- NOTE | 2024-01-14 11:20 | ANE.PACU2 ---
Inpatient post-anesthesia follow up: Airway intact: Yes Vital signs: Temperature 97.0 F Pulse Rate 67 Respiratory Rate 18 Blood Pressure 134/85 Pulse Oximetry 96 Oxygen Delivery Me thod Room Air Oxygen Flow Rate Fraction of Inspir ed Oxygen Hydration adequate: Yes Nausea and vomiting: No Pain level: 1 Mental status: Baseline
== END 2024-01-14 11:23 | disposition home or self-care (01) ==
PROVIDERS: PCP Nurse Practitioner Family; Visit Provider Surgery
PROC: 0DJ08ZZ Inspection of Upper Intestinal Tract, Via Natural or Artificial Opening Endoscopic (ICD-10-PCS; CPT 43235; principal; 2024-01-14 10:30)
PROC: 0DJD8ZZ Inspection of Lower Intestinal Tract, Via Natural or Artificial Opening Endoscopic (ICD-10-PCS; CPT 45378; 2024-01-14 10:30)
DX: K92.1 Melena (principal); R03.0 Elevated blood-pressure reading, without diagnosis of hypertension; E03.9 Hypothyroidism, unspecified; E78.5 Hyperlipidemia, unspecified; K29.50 Unspecified chronic gastritis without bleeding; K21.9 Gastro-esophageal reflux disease without esophagitis; K57.30 Diverticulosis of large intestine without perforation or abscess without bleeding; K20.90 Esophagitis, unspecified without bleeding
CPT/HCPCS: 43239; 45378; 88305; 88342; J2704; J7030

== ENCOUNTER → 2024-01-26 09:55 | Outpatient (BNVA) | payer MEDICARE, OTHER, SELFPAY | PROVIDERS: PCP Nurse Practitioner Family; Visit Provider Surgery | DX: Z09 Encounter for follow-up examination after completed treatment for conditions other than malignant neoplasm (principal); K21.00 Gastro-esophageal reflux disease with esophagitis, without bleeding | CPT/HCPCS: 99214 ==

== ENCOUNTER → 2024-04-20 10:16 | Outpatient (BNVA) | payer MEDICARE, OTHER, SELFPAY | PROVIDERS: PCP Nurse Practitioner Family; Visit Provider Physician Assistant | DX: Z96.641 Presence of right artificial hip joint (principal) | CPT/HCPCS: 73502; 99213 ==

== ENCOUNTER 2024-06-11 11:07 | Outpatient (CLI) | payer MEDICARE, OTHER, SELFPAY ==
--- NOTE | 2024-06-11 11:16 | MM_ITS ---
WS: [id number] BILATERAL 3D TOMOSYNTHESIS DIGITAL SCREENING MAMMOGRAPHY WITH CAD CLINICAL INFORMATION: SCREENING HISTORY: Screening mammogram. No current complaints. COMPARISON: 06/11/2023 TECHNIQUE: Bilateral CC and MLO views. FINDINGS: The breasts are composed of heterogeneous fibroglandular density tissue, which can limit the detection of small underlying mass lesions. No suspicious mass, asymmetry, calcifications, or architectural distortion. No evidence of malignancy. LEFT breast biopsy clip. Vascular calcification. MM/MM Psychiatric tomosynthesis [id number] IMPRESSION: DENSITY: The breasts are heterogeneously dense, which may obscure small masses. BI-RADS: 2 - Benign FOLLOW UP: 1 Year Follow-up Recommend return to annual screening mammography.
== END 2024-06-11 11:08 | disposition home or self-care (01) ==
LOC: RAD 11:09
PROVIDERS: PCP Nurse Practitioner Family; Visit Provider Nurse Practitioner Family
DX: Z12.31 Encounter for screening mammogram for malignant neoplasm of breast (principal); R92.333 Mammographic heterogeneous density, bilateral breasts; R92.1 Mammographic calcification found on diagnostic imaging of breast
CPT/HCPCS: 77063; 77067

== ENCOUNTER → 2024-10-19 10:06 | Outpatient (BNVA) | payer MEDICARE, OTHER, SELFPAY | PROVIDERS: PCP Nurse Practitioner Family; Visit Provider Physician Assistant | DX: Z96.641 Presence of right artificial hip joint (principal); Z47.1 Aftercare following joint replacement surgery | CPT/HCPCS: 73502; 99213 ==

== ENCOUNTER → 2025-01-18 08:43 | Outpatient (BNVA) | payer MEDICARE, OTHER, SELFPAY | PROVIDERS: PCP Nurse Practitioner Family; Visit Provider Nurse Practitioner Family | DX: E78.2 Mixed hyperlipidemia (principal); E03.9 Hypothyroidism, unspecified; Z79.899 Other long term (current) drug therapy | CPT/HCPCS: 80053; 80061; 81003; 82306; 83036; 84443; 85025 ==

== ENCOUNTER → 2025-01-24 11:02 | Outpatient (BNVA) | payer MEDICARE, OTHER, SELFPAY | PROVIDERS: PCP Nurse Practitioner Family; Visit Provider Nurse Practitioner Family | DX: J06.9 Acute upper respiratory infection, unspecified (principal); H61.23 Impacted cerumen, bilateral | CPT/HCPCS: 87071; 87880 ==